=== PATIENT | male | born 1950 | race Caucasian/White ===

== ENCOUNTER → 2016-11-02 | Outpatient (CLI) | payer OTHER | END | disposition home or self-care (01) | LOC: CFH 14:13 | PROVIDERS: ATTEND Nurse Practitioner Family | DX: R10.32 Left lower quadrant pain (principal); M25.532 Pain in left wrist; M25.542 Pain in joints of left hand | CPT/HCPCS: 74000 ==

== ENCOUNTER 2017-03-17 07:12 | Day surgery (SDC) | payer OTHER ==
[~2017-03-17] VITALS: Ht 188 cm; Wt 107.3 kg
[2017-03-17 07:48] VITALS: BP 169/92
[2017-03-17] MEDS ORDERED: SODIUM CHLORIDE 0.9% 1,000 ML IV SCH (07:53)
[2017-03-17] MEDS ORDERED: LIDOCAINE 1%, 20ML ONE (08:28)
[2017-03-17] MEDS ORDERED: FLUMAZENIL 0.1 MG/1 ML, 5ML ONE (08:34)
[2017-03-17] MEDS ORDERED: MIDAZOLAM 1 MG/ML, 5ML ONE (08:34)
[2017-03-17] MEDS ORDERED: FENTANYL PF 100 MCG/2ML ONE (08:34)
[2017-03-17] MEDS ORDERED: NALOXONE 1 MG/ML, 2ML ONE (08:34)
== END 2017-03-17 10:50 ==
LOC: OUT 07:12
PROVIDERS: ATTEND Internal Medicine
DX: B19.20 Unspecified viral hepatitis C without hepatic coma (principal); E11.9 Type 2 diabetes mellitus without complications; F41.9 Anxiety disorder, unspecified; I10 Essential (primary) hypertension; Z87.39 Personal history of other diseases of the musculoskeletal system and connective tissue; Z98.890 Other specified postprocedural states; Z88.8 Allergy status to other drugs, medicaments and biological substances; Z86.14 Personal history of Methicillin resistant Staphylococcus aureus infection
CPT/HCPCS: 36415; 47000; 76942; 85610; 88307; 88313; 99156; 99157; J2250; J3010; J3490; J7030; J2310

== ENCOUNTER → 2017-04-05 | Outpatient (CLI) | payer OTHER ==
[~2017-04-05] MED LIST: REGADENOSON 0.4 MG/5 ML SYRINGE ONE
== END | disposition home or self-care (01) ==
LOC: CFH 12:16
PROVIDERS: ATTEND Internal Medicine Cardiovascular Disease
DX: R06.02 Shortness of breath (principal)
CPT/HCPCS: 78452; 93017; A9502; J2785

== ENCOUNTER → 2017-07-15 | Outpatient (CLI) | payer MEDICARE | END | disposition home or self-care (01) | LOC: CFH 13:59 | PROVIDERS: ATTEND Nurse Practitioner Family | DX: M25.552 Pain in left hip (principal) ==

== ENCOUNTER → 2018-12-26 | Outpatient (CLI) | payer MEDICARE | END | disposition home or self-care (01) | LOC: CFH 10:16 | PROVIDERS: ATTEND Nurse Practitioner Family | DX: M20.12 Hallux valgus (acquired), left foot (principal); R05 Cough | CPT/HCPCS: 71046 ==